=== PATIENT | male | born 1990 | race Caucasian/White ===

== ENCOUNTER 2025-01-06 21:22 | Emergency (ER) | payer BC ==
[~2025-01-06] VITALS: Ht 185.4 cm; Wt 91.0 kg
[2025-01-06 21:38] VITALS: TEMP 36.8; O2SAT 98
[2025-01-06] MEDS ORDERED: IBUP-2030 MT (22:57)
[2025-01-06] MEDS: KETOROLAC 30MG/ML VIAL IM ONE (23:12)
[2025-01-06 23:16] VITALS: BP 109/82; PULSE 66; RESP 18; O2SAT 100
== END 2025-01-06 23:16 | disposition home or self-care (01) ==
LOC: ER 21:22
DX: K08.89 Other specified disorders of teeth and supporting structures (principal)
CPT/HCPCS: 99283; 96372; J1885